=== PATIENT | male | born 2005 | race Caucasian/White ===

== ENCOUNTER 2024-12-27 10:28 | Emergency (ER) | payer OTHER, SELFPAY ==
[2024-12-27] VITALS (15 sets, daily range): BP systolic 113–136; BP diastolic 50–94; BMI 23.5
--- NOTE | 2024-12-27 11:57 | ED.GENMED ---
History of Present Illness
General
Chief Complaint: Change Level of Consciousness
Source: patient
Exam Limitations: none
Time Seen by Provider: 12/27/24 11:12
Nursing documentation reviewed up to this point in time: agreed with
History of Present Illness
History of Present Illness:
19-year-old male with no past medical history was at the dentist office to have his wisdom teeth pulled when he received 2 mg of Versed and fentanyl 50 mcg IM, shortly thereafter had a reported 'passed out and then shook a little bit' event
according to mom who was told this by the dental personnel assistant. Mom arrived in the room and patient was awake eyes opening and closing he was 'in and out of it,' nodded affirmatively that he knew his mom was there.
At this time patient feels very groggy, his extremities feel very heavy, he denies headache, his vision is a little blurry, he denies N/V/D/C, there was no incontinence. He admits to feeling very anxious in the dental of
Past History
Past History
ED Past Medical History: None and Psychiatric (anxiety, takes Zoloft)
ED Past Surgical History: None
Social History
Tobacco: Non-smoker
Alcohol: None
Drug: None
Personal: Single
Living: with family
Employment: Employed
Review of Systems
Review of Systems
Allergies reviewed?: Yes
All Other Systems: ROS reviewed and negative except as documented in HPI and ROS
Constitutional: Reports fatigue; Denies fever
EENT: Denies sore throat
Respiratory: Denies trouble breathing
Cardiac: Reports syncope; Denies chest pain
ABD/GI: Denies abdominal pain, nausea, vomiting or diarrhea
: Denies incontinence
Musculoskeletal: Reports no symptoms
Skin: Reports no symptoms
Neurological: Reports weakness (Generalized weakness); Denies headache
Phy Exam
Physical Exam
Physical Exam:
GENERAL: No acute distress. Groggy, Ox3.
CONSTITUTIONAL: Afebrile.
EYES: clear, conjunctivae normal
ENMT: moist mucus membranes, no intra oral trauma, Pharynx nl
RESPIRATORY: Regular respirations, nonlabored, lungs clear.
CARDIOVASCULAR: Regular rate and rhythm, no murmurs, no rubs.
GI: Soft, nontender, normal BS
MUSCULOSKELETAL: Moves with ease. Well perfused.
SKIN: Warm, dry, pink
PSYCH: Sedate mood and affect. Well kept, interactive and appropriate
NEUROLOGIC: Awake, groggy and oriented. No focal neurological deficits, strength equal throughout
Course
Orders/Labs/Results
Orders:
Orders
12/27/24 11:14
0.9% Sodium Chloride 1000 ml [Nss] 1,000 ml IV BOLUS
12/27/24 11:54
Complete Blood Count/With Diff Urgent
Comprehensive Metabolic Panel Urgent
Magnesium Urgent
Abnormal Lab Results
12/27/24
11:54
WBC 14.4 H 10^3/uL
(4.8-10.8)
Abs Immat Gran (auto) 0.1 H 10^3/uL
(0-0.05)
Absolute Neuts (auto) 10.6 H 10^3/uL
(1.4-6.5)
Absolute Monos (auto) 1.4 H 10^3/uL
(0.1-0.6)
Immature Gran % 0.7 H %
(0-0.5)
Lymphocytes % 14.8 L %
(20.5-51.1)
Monocytes % 9.9 H %
(1.7-9.3)
Glucose 104 H mg/dl
(70-99)
12/27/24 11:54
12/27/24 11:54
Vital Signs
Initial and Last Documented VS:
Initial Vital Signs
Temp Pulse Resp BP Pulse Ox
97.6 F 70 16 136/82 99
12/27/24 10:31 12/27/24 10:31 12/27/24 10:31 12/27/24 10:31 12/27/24 10:31
Last Documented Vital Signs
Temp Pulse Resp BP Pulse Ox
97.6 F 72 12 119/64 98
12/27/24 10:31 12/27/24 13:45 12/27/24 10:46 12/27/24 13:45 12/27/24 13:45
MDM/Problems Addressed
Differential Diagnosis Includes:
Medication reaction, vasovagal response to IM injection
MDM/Problems Addressed:
19-year-old male with no past medical history was at the dentist office to have his wisdom teeth pulled when he received 2 mg of Versed and fentanyl 50 mcg IM, shortly thereafter had a reported 'passed out and then shook a little bit' event
according to mom who was told this by the dental personnel assistant. Mom arrived in the room and patient was awake eyes opening and closing he was 'in and out of it,' nodded affirmatively that he knew his mom was there.
At this time patient feels very groggy, his extremities feel very heavy, he denies headache, his vision is a little blurry, he denies N/V/D/C, there was no incontinence.
He admits to feeling very anxious in the dental office
12:45 p.m.
Pt much more alert, moving extremities well. Strength equal throughout 11/15.
Consulted pharmacy, Versed T 1/2 is about 3 hours range 1.8 to 6 hours
Fentanyl IV VE T 1/2 about 2-4 hours
2:15 PM:
Eating Doritos, drinking
Patient feeling better, this examiner got him out of bed to ambulate and he ambulates independently but is still woozy and feeling a little unsteady on his feet
Parents and pt comfortable going home, will see PCP tomorrow if not 100% better by then.
Symptoms most likely from a combination of vasovagal response and side effect of medication
*Critical Care Note
Total Time (30-74mins, 75-104mins- exclusive of procedures): Not Applicable
ED Attending Note
-
Portions of this chart may have been created with voice recognition software.� Occasional wrong word or��sound alike� substitutions may have occurred due to the inherent limitations of voice recognition software.
Discharge Plan
Departure
Patient Disposition: Home (Routine Discharge)
Date of Disposition: 12/27/24
Time of Disposition: 14:14
Patient with high blood pressure during this ER visit?: No
Condition: Good
Discharge Problem:
Medication side effects, Episode of syncope
Instructions: Side effects from medicines, Vasovagal Response (DC)
Prescriptions:
No Action
sertraline 25 mg Tablet
25 mg PO DAILY
Referrals:
Zackary Jennings MD [Family Provider, Family Practice] - Tomorrow
Activity Restrictions/Additional Instructions:
As we discussed, drink plenty of fluid
This was most likely a side effect of the medications and perhaps partially a vasovagal response.
Get up very slowly from laying or sitting and sit for a minute before you stand until you are feeling 100% better
See your doctor in 1 or 2 days if you are not 100% better by then.
Interventions
Interventions:
*Risk Screen - Suicide Last Done: 12/27/24 12:14
*General Assessment Last Done: 12/27/24 12:14
*Neglect/Abuse Screening Last Done: 12/27/24 12:14
*ED- Fall Risk Assessment Last Done: 12/27/24 12:14
*ED COVID-19 Vaccine History Last Done: 12/27/24 12:14
*Nursing Disposition Last Done: 12/27/24 14:28
ED- Cardiac Assessment Last Done: 12/27/24 10:35
ED- Neurological Assessment Last Done: 12/27/24 10:35
ED-Psychological Assessment Last Done: 12/27/24 10:35
ED- Pulmonary Assessment Last Done: 12/27/24 10:35
Discharge Date and Time
Discharge Date/Time: 12/27/24 14:28
Print Language: RUSSIAN
[2024-12-27] MEDS: NSS 1000 IV (11:58)
[2024-12-27 12:05] LABS: % Basophils 0.5 % (0-2); % Eosinophils 0.9 % (0-6); % Immature Granulocytes 0.7 % (0-0.5); % Lymphocytes 14.8 % (20.5-51.1); % Monocytes 9.9 % (1.7-9.3); % Neutrophils 73.2 % (42.2-75.2); Absolute Basophils 0.1 10^3/uL (0-0.2); Absolute Eosinophils 0.1 10^3/uL (0-0.7); Absolute Immature Granulocytes 0.1 10^3/uL (0-0.05); Absolute Lymphocytes 2.1 10^3/uL (1.2-3.4); Absolute Monocytes 1.4 10^3/uL (0.1-0.6); Absolute Neutrophils 10.6 10^3/uL (1.4-6.5); Hematocrit 44.6 % (39.0-52.0); Hemoglobin 15.7 g/dL (13.0-18.0); Mean Corp Hgb Conc. 35.2 g/dL (33.0-37.0); Mean Corpuscular Hgb 29.8 pg (27.0-31.0); Mean Corpuscular Volume 84.8 fL (80.0-94.0); Mean Platelet Volume 8.7 fL (7.4-10.4); Nucleated Red Blood Cells % 0 % (-); Platelet Count 306 10^3/uL (130-400); Red Blood Cell Count 5.26 10^6/uL (4.70-6.10); Red Cell Dist. Width 11.8 % (11.5-14.5); White Blood Cell Count 14.4 10^3/uL (4.8-10.8)
[2024-12-27 12:14] LABS: ALT (SGPT) 16 U/L (0-50); AST (SGOT) 24 U/L (17-59); Albumin 4.7 g/dl (3.5-5.0); Alkaline Phosphatase 82 U/L (38-126); Blood Urea Nitrogen 12 mg/dl (9-20); Calcium 9.5 mg/dl (8.4-10.2); Carbon Dioxide 24 mmol/L (22-30); Chloride 107 mmol/L (98-107); Estimated Creatinine Clearance > 125 ml/min; Glucose 104 mg/dl (70-99); Magnesium 1.9 mg/dl (1.6-2.3); Potassium 4.2 mmol/L (3.5-5.1); Sodium 138 mmol/L (135-145); eGFR > 60.00
== END 2024-12-27 14:28 | disposition home or self-care (01) ==
LOC: EMR 10:28
PROVIDERS: Registered Nurse; EMERGENCY PHYSICIAN Emergency Medicine; FAMILY PHYSICIAN Family Medicine
DX: R55 Syncope and collapse (principal); T42.4X5A Adverse effect of benzodiazepines, initial encounter; T40.415A Adverse effect of fentanyl or fentanyl analogs, initial encounter
CPT/HCPCS: 99284; 96360; 80053; 83735; 85025